=== PATIENT | male | born 1940 | race Caucasian/White ===

== ENCOUNTER → 2020-12-24 | Outpatient (CLI) | payer MEDICARE ==
[~2020-12-24] MED LIST: ELIQUIS 5 MG TAB5 MG PO; FLAGYL500 MG PO; LOPRESSOR 25 MG25 MG PO; NORVASC 5 MG TAB5 MG PO; TYLENOL 500 MG500 MG PO; TYLENOL W/CODEIN1 E1 PO; VITAMIN B-121000 MCG PO; VITAMIN D35000 UNI1 PO
== END ==
LOC: KOH-I 14:02
DX: R91.8 Other nonspecific abnormal finding of lung field (principal); R06.02 Shortness of breath; R94.2 Abnormal results of pulmonary function studies; Z87.891 Personal history of nicotine dependence
CPT/HCPCS: 71250; 94060; 94729

== ENCOUNTER 2021-06-09 10:26 | Emergency (ER) | payer MEDICARE ==
[2021-06-09] MEDS ORDERED: NIZORAL 2% CREA15 GM TOP (10:54)
== END 2021-06-09 11:08 | disposition home or self-care (01) ==
LOC: ER1 10:26
DX: B35.6 Tinea cruris (principal)
CPT/HCPCS: 99282

== ENCOUNTER 2021-06-21 11:00 | Emergency (ER) | payer MEDICARE ==
[~2021-06-21 11:00] MED LIST changes: +NIZORAL 2% CREA15 GM TOP
[2021-06-21] MEDS ORDERED: TESSALON PERLE100 MG PO (14:19)
== END 2021-06-21 14:30 | disposition home or self-care (01) ==
LOC: ER1 11:00
DX: J06.9 Acute upper respiratory infection, unspecified (principal); Z20.822 Contact with and (suspected) exposure to COVID-19; I48.91 Unspecified atrial fibrillation; I10 Essential (primary) hypertension; Z95.0 Presence of cardiac pacemaker
CPT/HCPCS: 71045; 99285; U0002

== ENCOUNTER → 2021-12-08 | Outpatient (CLI) | payer MEDICARE ==
[~2021-12-08] MED LIST changes: +TESSALON PERLE100 MG PO
[2021-12-08 12:23] LABS: HEMOGLOBIN 16.2 gm/dl (14.0-17.5); RED BLOOD COUNT 5.92 M/UL (4.20-5.50); WHITE BLOOD COUNT 8.5 K/UL (4.5-11.0)
[2021-12-09 10:16] LABS: HCV AB <0.1 (0.0-0.9)
== END ==
LOC: LAB 11:19
PROVIDERS: Nurse Practitioner Family
DX: Z11.59 Encounter for screening for other viral diseases (principal); I10 Essential (primary) hypertension; E78.5 Hyperlipidemia, unspecified; E55.9 Vitamin D deficiency, unspecified; Z00.00 Encounter for general adult medical examination without abnormal findings
CPT/HCPCS: 36415; 80061; 85025; 86803